=== PATIENT | male | born 1995 | race Caucasian/White ===

== ENCOUNTER 2019-06-06 13:50 | Emergency (ER) | payer MEDICAID, SELFPAY ==
[2019-06-06 13:58] VITALS: BP 149/86; PULSE 94; RESP 18; TEMP 36.9; O2SAT 97
--- NOTE | 2019-06-06 14:24 | DI.CT_ITS ---
SYMPTOMS/DIAGNOSIS: SHARP PERIUMBILICAL ABDOMINAL PAIN X 1 WEEK, FEELS LIKE PRIOR HERNIA REPAIRED IN DECEMBER 2017, PAIN RADIATING DISTALLY WHEN URINATING CT OF THE ABDOMEN AND PELVIS: Comparison is made with December,. The heart size is normal. The lung bases are clear. The liver, gallbladder, spleen, pancreas, kidneys and adrenals appear normal. The stomach is distended with food and fluid. The small bowel and colon are unremarkable. There is no bowel wall thickening or abnormal distention. The appendix appears normal. There is no free air or free fluid. The bladder and prostate are unremarkable. IMPRESSION: Negative CT of the abdomen and pelvis. No inguinal or abdominal wall hernia is seen.
--- NOTE | 2019-06-06 14:26 | ED.GENADUL_ITS ---
Discharge Plan Disposition Patient Disposition: HOME Discharge Details Chief Complaint: Abd Prob Clinical Impression: Abdominal pain Primary Care Provider: Angelo Gilliam ED Provider: Kyle Collazo Home Meds and New Rx's Prescriptions: Continued acetaminophen [Tylenol] 325 MG tablet 650 mg PO Q4H PRN PRNRF: 0 ibuprofen 200 MG capsule 600 mg PO Q6H PRN PRNQty: 1 RF: 0 Discharge Instructions Instructions: Abdominal Pain (ED) Additional Instructions: Rest over the next couple days. Maintain a clear liquid diet tonight. Advance her diet to bland soft foods tomorrow. If you tolerate soft foods tomorrow, you can advance diet further. Please contact your primary care physician to arrange follow-up. Please contact general surgery to arrange follow-up. Return to the ER for any worsening or new concerning symptoms. Referrals: Skyla Figueroa DO [OSTEOPATHIC DOCTOR] - Discharge Data Discharge Date/Time-TO BE ENTERED AT DEPARTURE: 06/06/19 17:31 Medical Decision Making 24-year-old male presents with chief complaint of abdominal pain. Patient is approximately 1.5 year status post umbilical hernia repair with mesh. Patient notes pain feels exactly the same as when he had hernia in the past. CT the abdomen pelvis was interpreted by radiology: FINDINGS: Mild gastric distention with a moderate amount of ingested material the exact etiology or significance this is uncertain. Appendix appears normal. Normal appearing solid organs. No intestinal obstruction. No obstructive uropathy. No free fluid. No free air. No inflammatory changes. IMPRESSION: No specific etiology identified for the patient's symptoms. Labs reviewed and nondiagnostic. Concern for likely intermittent hernia versus pain from scar tissue and adhesions. Patient was reassessed remained stable. All results were discussed with the patient. Patient was encouraged to follow- up with general surgery. I advised patient to return immediately for any worsening or new concerning symptoms. HPI General Mode of arrival: ambulatory . Date/Time Provider Initiated Documentation: 06/06/19 14:07 . Limitations to Documentation: no limitations . Information obtained by: patient . HPI Narrative: 24-year-old male presents with chief complaint of abdominal pain. Patient is approximately 1.5 year status post umbilical hernia repair with mesh. Pain feels exactly the same as when he had hernia in the past - pain is moderate, waxes and wanes over the past few days and more constant today. Pain was severe earlier today. No associated vomiting. No testicular pain or swelling. Related Data Home Medications Medication Instructions Recorded Confirmed acetaminophen [Tylenol] 650 mg PO Q4H PRN PRN tab 12/30/17 06/06/19 ibuprofen 600 mg PO Q6H PRN PRN #1 capsule 12/30/17 06/06/19 Previous Rx's Medication Instructions Recorded acetaminophen [Tylenol] 650 mg PO Q4H PRN PRN tab 12/30/17 ibuprofen 600 mg PO Q6H PRN PRN #1 capsule 12/30/17 Allergies Allergy/AdvReac Type Severity Reaction Status Date / Time shellfish derived Allergy Unverified 06/06/19 17:04 General Stated Complaint: Abd Prob JOHN: 2 Review of Systems Review of Systems All systems reviewed & are unremarkable except as noted in HPI and below Gastrointestinal Reports abdominal pain Genitourinary Denies scrotal swelling and Denies testicular mass PFSH Medical History (Updated 06/20/19 @ 08:38 by Kyle Collazo MD) Hernia (Chronic) Social History Smoking/Tobacco Use Status: Never Alcohol Intake: current Alcohol Intake frequency: a few times a month Alcohol type: beer Drug use: Never Substance use type: does not use Do you feel safe at home: Yes Do you feel safe in your relationship?: Yes Exam Const General: cooperative and no acute distress HENMT Mouth: moist mucous membranes Eyes Conjunctivae: normal conjunctivae Sclera: normal sclerae Neck Neck: trachea midline and supple Resp Auscultation: clear to auscultation bilaterally, no rales, no rhonchi and no wheezes Cardio Jugular venous pressure: no JVD Rate: regular rate and not tachycardic Rhythm: regular rhythm GI Palpation: soft, not firm, no guarding, no masses, not rigid and tender periumbilically Auscultation: normal bowel sounds Skin General skin exam: no rashes or lesions noted Neuro General: alert, awake and tone normal Extrem General: no edema Psych Appearance: grossly normal Mental Status: mental status grossly normal Course Vital Signs Temperature 36.9 C 06/06/19 13:58 Pulse 94 H 06/06/19 13:58 Respiratory Rate 18 06/06/19 13:58 Blood Pressure 149/86 H 06/06/19 13:58 Pulse Oximetry 97 06/06/19 13:58 Temperature 36.9 C 06/06/19 13:58 Temperature Source Temporal Artery Scan 06/06/19 13:58 Pulse 94 H 06/06/19 13:58 Respiratory Rate 18 06/06/19 13:58 Respiratory Effort Non-Labored 06/06/19 14:00 Blood Pressure 149/86 H 06/06/19 13:58 Pulse Oximetry 97 06/06/19 13:58 Oxygen Delivery Method Room Air 06/06/19 13:58 Oxygen Flow Rate 0 06/06/19 13:58 Pain Level 8 06/06/19 13:58
[2019-06-06 14:36] LABS: Lactate 0.9 mmol/L (0.6-1.4)
[2019-06-06 14:41] LABS: Abs Immature Grans 0.01 k/cumm (0.0-0.09); Absolute Basophil Count 0.03 k/cumm (0.0-0.2); Absolute Eosinophil Count 0.07 k/cumm (0.0-0.7); Absolute Lymphocyte Count 2.35 k/cumm (1.2-3.4); Absolute Monocyte Count 0.59 k/cumm (0.11-0.7); Absolute Neutrophil Count 3.86 k/cumm (1.2-6.7); Basophils % 0.4; HCT 44.6 % (40.0-50.0); HGB 16.1 g/dL (13.5-17.5); Immature Grans % 0.1; Mean Corp. HGB Concentration 36.1 g/dL (32.0-36.0); Mean Corpuscular Hemoglobin 31.2 pg (27.0-33.0); Mean Corpuscular Volume 86.4 fL (80-95); Mean Platelet Volume 9.3 fL (8.0-11.0); Monocytes % 8.5; Platelet Count 347 x1000/uL (130-400); RBC 5.16 m/cumm (4.50-6.00); White Blood Cell Count 6.91 k/cumm (4.4-10.8)
[2019-06-06 14:42] LABS: Bilirubin Negative (Negative); Blood Negative (Negative); Clarity Clear (Clear); Glucose Negative (Negative); Ketones Negative (Negative); Leukocyte Esterase Negative (Negative); Nitrite Negative (Negative); Specific Gravity 1.015 (1.005-1.025); Urobilinogen 0.2 EU/dL (Up TO 0.2); pH 7.5 (5-8)
[2019-06-06 14:57] LABS: ALT 67 U/L (16-63); AST 31 U/L (15-37); Albumin 4.4 g/dL (3.4-5.0); Alkaline Phosphatase 98 U/L (46-116); Anion Gap 8.6 mmol/L (3-11); BUN 14 mg/dL (7-18); Bilirubin, Total 0.5 mg/dL (0.2-1.0); CO2 29.4 mmol/L (21.0-32.0); CREATININE 1.24 mg/dL (0.70-1.30); Chloride 105 mmol/L (98-107); Glucose 80 mg/dL (70-100); Lipase 138 U/L (73-393); Potassium 3.5 mmol/L (3.5-5.1); Sodium 143 mmol/L (136-145); Total Protein 8.4 g/dL (6.4-8.2)
--- NOTE | 2019-06-06 16:14 | DI.VRAD_ITS ---
EXAM: CT Abdomen and Pelvis With Contrast EXAM DATE/TIME: 06/06/2019 2:26 PM CLINICAL HISTORY: 24 years old, male; Abdominal pain; Periumbilical; Prior surgery; Surgery date: 6+ months; Surgery type: Hernia repair December 2017. ; Patient HX: Sharp umbilical pain, radiating distally when urinating. Sharp pain since today lasts a couple hours. pain like last hernia last year. Has not hurt until 1 week ago. TECHNIQUE: Imaging protocol: Computed tomography of the abdomen and pelvis with intravenous contrast. Radiation optimization: All CT scans at this facility use at least one of these dose optimization techniques: automated exposure control; mA and/or kV adjustment per patient size (includes targeted exams where dose is matched to clinical indication); or iterative reconstruction. Contrast material: OMNIPAQUE 350; Contrast volume: 100 ml; Contrast route: IV; COMPARISON: CT ABD PELVIS WITH CONTRAST 12/06/2017 5:30 PM FINDINGS: Mild gastric distention with a moderate amount of ingested material the exact etiology or significance this is uncertain. Appendix appears normal. Normal appearing solid organs. No intestinal obstruction. No obstructive uropathy. No free fluid. No free air. No inflammatory changes. IMPRESSION: No specific etiology identified for the patient's symptoms. Dictated and Authenticated by: Andrzej Foley MD. Ordering:RAKESH Wright MD
[2019-06-06 17:07] VITALS: BP 119/78; PULSE 70; RESP 12; O2SAT 96
--- NOTE | 2019-06-06 18:54 | NUR.NOTE ---
Referral faxed to [facility]Nursing Note:
== END 2019-06-06 17:31 | disposition home or self-care (01) ==
PROVIDERS: Emergency Provider Student in an Organized Health Care Education/Training Program; PCP Physician Assistant
DX: R10.33 Periumbilical pain (principal); Z98.890 Other specified postprocedural states
CPT/HCPCS: 36415; 80053; 83690; 99284; 74177; 81003; 83605; 85025

== ENCOUNTER 2019-11-16 11:56 | Emergency (ER) | payer OTHER, MEDICAID, SELFPAY ==
[2019-11-16 12:00] VITALS: BP 162/96; PULSE 82; RESP 18; TEMP 36.6; O2SAT 94
[2019-11-16 12:50] LABS: Lactate 0.8 mmol/L (0.6-1.4)
[2019-11-16 12:52] LABS: Bilirubin Negative (Negative); Blood Negative (Negative); Clarity Clear (Clear); Glucose Negative (Negative); Ketones Negative (Negative); Leukocyte Esterase Negative (Negative); Nitrite Negative (Negative); Specific Gravity <= 1.005 (1.005-1.025); Urobilinogen 0.2 EU/dL (Up TO 0.2); pH 5.5 (5-8)
[2019-11-16 12:53] LABS: Absolute Basophil Count 0.03 k/cumm (0.0-0.2); Absolute Eosinophil Count 0.06 k/cumm (0.0-0.7); Absolute Lymphocyte Count 2.18 k/cumm (1.2-3.4); Absolute Monocyte Count 0.47 k/cumm (0.11-0.7); Absolute Neutrophil Count 3.57 k/cumm (1.2-6.7); Basophils % 0.5; HCT 47.1 % (40.0-50.0); HGB 16.8 g/dL (13.5-17.5); Lymphocytes % 34.5; Mean Corp. HGB Concentration 35.7 g/dL (32.0-36.0); Mean Corpuscular Hemoglobin 30.3 pg (27.0-33.0); Mean Corpuscular Volume 84.9 fL (80-95); Mean Platelet Volume 9.2 fL (8.0-11.0); Monocytes % 7.4; Neutrophils % 56.6; Platelet Count 378 x1000/uL (130-400); RBC 5.55 m/cumm (4.50-6.00); RBC Distribution Width 11.9 % (11.8-14.1); White Blood Cell Count 6.31 k/cumm (4.4-10.8)
--- NOTE | 2019-11-16 13:14 | ED.GENADUL_ITS ---
Discharge Plan Disposition Patient Disposition: HOME Discharge Details Chief Complaint: Abd Prob Clinical Impression: Abdominal pain Primary Care Provider: Angelo Gilliam ED Provider: Jonnie Guthrie Home Meds and New Rx's Prescriptions: No Action acetaminophen [Tylenol] 325 MG tablet 650 mg PO Q4H PRN PRNRF: 0 ibuprofen 200 MG capsule 600 mg PO Q6H PRN PRNQty: 1 RF: 0 Discharge Instructions Instructions: Abdominal Pain (ED) Additional Instructions: As we discussed, laboratory values are normal. CT imaging was offered but de clined at this time. Please watch for new or worsening symptoms and return to the ER for any concerns. As we discussed outpatient follow-up with surgery and/or urology may be indicated for your ongoing symptoms. Referrals: Martin Johnson MD [ [facility] ST[facility]FF [facility]YSICIAN] - Radha Vasquez MD [ [facility] STAFF PHYSICIAN] - Medical Decision Making 24-year-old gentleman who presents with abdominal pain for the past hour although chronic since his umbilical hernia surgery in December 2017. He does have reproducible discomfort however there is no guarding, rebound or rigidity. Abdomen is nonsurgical at this time. Certainly could be adhesions secondary to his surgery. He does report that typically his pain maxes out at a severe level and then over the next few hours slowly returns to baseline. He feels as though this is what is happening now. Patient is afebrile, no right lower quadrant discomfort, low suspicion for acute appendicitis. No urinary symptoms, low suspicion for UTI. No STD exposures. Patient openly admits that he is concerned about radiation as he has had abdominal scans as well as head CTs in the past. I did explain to him that I certainly do not feel a hernia upon my evaluation however cannot rule hernia out. Based upon his examination I have low suspicion for strangulation or incarceration of a hernia. We discussed her options, he is open to have blood work and a urinalysis completed however he would like to hold off on the CT at this time. He reports that the pain today is similar to what he experienced roughly 4 months ago after his last CT imaging. Given he appears well, nontoxic, normal CT 4 months ago, and his concern for radiation, I do believe not obtaining a CT reflexively at this time is reasonable. Laboratory values including lactic acid are unremarkable. Discussed these findings patient, family, significant other. Discussed the importance of outpatient follow-up including surgery and/or urology. He was encouraged to watch for new or worsening symptoms and return to the ER immediately for reevaluation. Patient comfortable this plan and has additional questions or concerns. Medical Records Medical records reviewed: Yes I reviewed the patient's medical records. Lab Data Lab results reviewed: Yes I reviewed the patient's lab results. Lab results narrative: Laboratory Tests Range/Units 11/16/19 11/16/19 11/16/19 12:44 12:44 12:44 WBC (4.4-10.8) k/cumm 6.31 RBC (4.50-6.00) m/cumm 5.55 Hgb (13.5-17.5) g/dL 16.8 Hct (40.0-50.0) % 47.1 MCV (80-95) fL 84.9 MCH (27.0-33.0) pg 30.3 MCHC (32.0-36.0) g/dL 35.7 RDW (11.8-14.1) % 11.9 Plt Count (130-400) x1000/uL 378 MPV (8.0-11.0) fL 9.2 Immature Gran % % 0.0 Neutrophils % 56.6 Lymphocytes % 34.5 Monocytes % 7.4 Eosinophils % 1.0 Basophils % 0.5 Absolute Neutrophils (1.2-6.7) k/cumm 3.57 Absolute Lymphocytes (1.2-3.4) k/cumm 2.18 Absolute Monocytes (0.11-0.7) k/cumm 0.47 Absolute Eosinophils (0.0-0.7) k/cumm 0.06 Absolute Basophils (0.0-0.2) k/cumm 0.03 Sodium (136-145) mmol/L 142 Potassium (3.5-5.1) mmol/L 3.8 Chloride (98-107) mmol/L 105 Carbon Dioxide (21.0-32.0) mmol/L 24.9 Anion Gap (3-11) mmol/L 12.1 H BUN (7-18) mg/dL 13 Creatinine (0.70-1.30) mg/dL 1.13 Estimated GFR/1.73 m2 (mL/min/1.73m2) >= 60.00 Glucose (74-106) mg/dL 111 H Lactate (0.6-1.4) mmol/L 0.8 Calcium (8.5-10.1) mg/dL 9.3 Total Bilirubin (0.2-1.0) mg/dL 0.5 AST (15-37) U/L 44 H ALT (16-63) U/L 114 H Alkaline Phosphatase (46-116) U/L 80 Total Protein (6.4-8.2) g/dL 8.5 H Albumin (3.4-5.0) g/dL 4.7 Urine Color (Yellow) Urine Clarity (Clear) Urine pH (5-8) Ur Specific [place] (1.005-1.025) Urine Protein (Negative) mg/dL Urine Ketones (Negative) mg/dL Urine Blood (Negative) Urine Nitrite (Negative) Urine Bilirubin (Negative) Urine Urobilinogen (Up TO 0.2) EU/dL Ur Leukocyte Esterase (Negative) Urine Glucose (Negative) mg/dL Range/Units 11/16/19 12:44 WBC (4.4-10.8) k/cumm RBC (4.50-6.00) m/cumm Hgb (13.5-17.5) g/dL Hct (40.0-50.0) % MCV (80-95) fL MCH (27.0-33.0) pg MCHC (32.0-36.0) g/dL RDW (11.8-14.1) % Plt Count (130-400) x1000/uL MPV (8.0-11.0) fL Immature Gran % % Neutrophils % Lymphocytes % Monocytes % Eosinophils % Basophils % Absolute Neutrophils (1.2-6.7) k/cumm Absolute Lymphocytes (1.2-3.4) k/cumm Absolute Monocytes (0.11-0.7) k/cumm Absolute Eosinophils (0.0-0.7) k/cumm Absolute Basophils (0.0-0.2) k/cumm Sodium (136-145) mmol/L Potassium (3.5-5.1) mmol/L Chloride (98-107) mmol/L Carbon Dioxide (21.0-32.0) mmol/L Anion Gap (3-11) mmol/L BUN (7-18) mg/dL Creatinine (0.70-1.30) mg/dL Estimated GFR/1.73 m2 (mL/min/1.73m2) Glucose (74-106) mg/dL Lactate (0.6-1.4) mmol/L Calcium (8.5-10.1) mg/dL Total Bilirubin (0.2-1.0) mg/dL AST (15-37) U/L ALT (16-63) U/L Alkaline Phosphatase (46-116) U/L Total Protein (6.4-8.2) g/dL Albumin (3.4-5.0) g/dL Urine Color (Yellow) Yellow Urine Clarity (Clear) Clear Urine pH (5-8) 5.5 Ur Specific [place] (1.005-1.025) <= 1.005 Urine Protein (Negative) mg/dL Negative Urine Ketones (Negative) mg/dL Negative Urine Blood (Negative) Negative Urine Nitrite (Negative) Negative Urine Bilirubin (Negative) Negative Urine Urobilinogen (Up TO 0.2) EU/dL 0.2 Ur Leukocyte Esterase (Negative) Negative Urine Glucose (Negative) mg/dL Negative HPI General Mode of arrival: ambulatory . Date/Time Provider Initiated Documentation: 11/16/19 12:08 . Limitations to Documentation: no limitations . Information obtained by: patient . HPI Narrative: 24-year-old male presents for lower abdominal-periumbilical pain that began roughly 1 hour ago while at work after making a sharp twisting movement. Patient reports that the pain has been constant and severe. He has a history of umbilical hernia repair in December 2017. He has had chronic pain ever since that time which does feel similar to what he is experiencing now. He reports that he had a CAT scan roughly 4 months ago for the same which was unremarkable. He denies any fever, nausea, vomiting, back pain, dysuria, hematuria, pain in his groin or testicles. He does report that historically over the past 2 years his pain is typically worse when he has a ful l bladder. He was told to follow-up with a surgical team as an outpatient but has yet to do so. Related Data Home Medications Medication Instructions Recorded Confirmed acetaminophen [Tylenol] 650 mg PO Q4H PRN PRN tab 12/30/17 06/06/19 ibuprofen 600 mg PO Q6H PRN PRN #1 capsule 12/30/17 06/06/19 Previous Rx's Medication Instructions Recorded acetaminophen [Tylenol] 650 mg PO Q4H PRN PRN tab 12/30/17 ibuprofen 600 mg PO Q6H PRN PRN #1 capsule 12/30/17 Allergies Allergy/AdvReac Type Severity Reaction Status Date / Time shellfish derived Allergy Unverified 06/06/19 17:04 General Stated Complaint: Abd Prob JOHN: 2 Review of Systems Constitutional Constitutional: Denies fever(s) and Denies headache(s) ENT Ears, Nose, Mouth, and Throat: Denies headache(s) Cardiovascular Cardiovascular: Denies chest pain and Denies palpitations Respiratory Respiratory: Denies cough Gastrointestinal Gastrointestinal: Reports abdominal pain, Denies constipation, Denies diarrhea, Denies nausea and Denies vomiting Genitourinary Genitourinary: Denies hematuria, Denies difficulty urinating, Denies genital lesions, Denies genital pain, Denies dysuria, Denies flank pain, Denies penile discharge, Denies scrotal swelling, Denies testicular mass, Denies testicular pain, Denies urinary frequency, Denies urinary hesitancy, Denies urinary urgency and Denies other (STD exposure) Musculoskeletal Musculoskeletal: Denies back pain, Denies numbness and Denies tingling Neurologic Neurologic: Denies headache(s), Denies numbness and Denies tingling Endocrine Endocrine: Denies palpitations Hematologic/Lymphatic Hematologic/Lymphatic: Denies lymphadenopathy [facility] Medical History Hernia (Chronic) Social History Smoking/Tobacco Use Status: Never Alcohol Intake: current Alcohol Intake frequency: a few times a month Alcohol type: beer Drug use: Never Substance use type: does not use Do you feel safe at home: Yes Do you feel safe in your relationship?: Yes Exam Const General: cooperative, healthy appearing, comfortable and no acute distress Orientation: alert HENMA Head: normal to inspection, normocephalic and atraumatic Mouth: moist mucous membranes Eyes Conjunctivae: conjunctivae normal Neck Neck: normal visual inspection, trachea midline and supple Resp Effort & Inspection: normal respiratory effort Auscultation: clear to auscultation bilaterally Cardio Rate: regular rate Rhythm: regular rhythm GI Inspection: normal to inspection and scar (Inferior periumbilical region, appears well-healed) Palpation: soft, not firm, no guarding, no hernias, no masses, no pulsatile masses, not rigid and tender (There is discomfort to the periumbilical and suprapubic region with moderat) Auscultation: normal bowel sounds Male General Exam: Yes normal external exam, No hernia (Examined both lying down and standing), No inguinal lymphadenopathy, No lesions and No tenderness Scrotum: scrotum normal Testes: normal Back/Spine/Pelvis Back: no CVA tenderness and No back tenderness Thoracic/Lumbar Spine: thoracic and lumbar spine normal to inspection, thoraco- lumbar ROM normal, No pain with thoraco-lumbar ROM and No paraspinal tenderness Skin General skin exam: no rashes or lesions noted Neuro General: alert and awake Motor: muscle tone normal throughout Sensory Exam: no sensory deficits noted and other (Cremasteric reflex equal bilaterally, 2+) Extrem General: normal to inspection Course Vital Signs Vital signs: Vital Signs Temperature 36.6 C 11/16/19 12:00 Pulse 82 11/16/19 12:00 Respiratory Rate 18 11/16/19 12:00 Blood Pressure 162/96 H 11/16/19 12:00 Pulse Oximetry 94 L 11/16/19 12:00 Temperature 36.6 C 11/16/19 12:00 Temperature Source Skin 11/16/19 12:00 Pulse 82 11/16/19 12:00 Respiratory Rate 18 11/16/19 12:00 Blood Pressure 162/96 H 11/16/19 12:00 Blood Pressure Position Sitting 11/16/19 12:00 Pulse Oximetry 94 L 11/16/19 12:00 Oxygen Delivery Method Room Air 11/16/19 12:00 Oxygen Flow Rate 0 11/16/19 12:00 Pain Level 10 11/16/19 12:00 Lab/Test Results Lab/Test Results: Laboratory Tests Range/Units 11/16/19 11/16/19 11/16/19 12:44 12:44 12:44 WBC (4.4-10.8) k/cumm 6.31 RBC (4.50-6.00) m/cumm 5.55 Hgb (13.5-17.5) g/dL 16.8 Hct (40.0-50.0) % 47.1 MCV (80-95) fL 84.9 MCH (27.0-33.0) pg 30.3 MCHC (32.0-36.0) g/dL 35.7 RDW (11.8-14.1) % 11.9 Plt Count (130-400) x1000/uL 378 MPV (8.0-11.0) fL 9.2 Immature Gran % % 0.0 Neutrophils % 56.6 Lymphocytes % 34.5 Monocytes % 7.4 Eosinophils % 1.0 Basophils % 0.5 Absolute Neutrophils (1.2-6.7) k/cumm 3.57 Absolute Lymphocytes (1.2-3.4) k/cumm 2.18 Absolute Monocytes (0.11-0.7) k/cumm 0.47 Absolute Eosinophils (0.0-0.7) k/cumm 0.06 Absolute Basophils (0.0-0.2) k/cumm 0.03 Lactate (0.6-1.4) mmol/L 0.8 Urine Color (Yellow) Yellow Urine Clarity (Clear) Clear Urine pH (5-8) 5.5 Ur Specific [place] (1.005-1.025) <= 1.005 Urine Protein (Negative) mg/dL Negative Urine Ketones (Negative) mg/dL Negative Urine Blood (Negative) Negative Urine Nitrite (Negative) Negative Urine Bilirubin (Negative) Negative Urine Urobilinogen (Up TO 0.2) EU/dL 0.2 Ur Leukocyte Esterase (Negative) Negative Urine Glucose (Negative) mg/dL Negative
[2019-11-16 13:24] LABS: ALT 114 U/L (16-63); AST 44 U/L (15-37); Albumin 4.7 g/dL (3.4-5.0); Alkaline Phosphatase 80 U/L (46-116); Anion Gap 12.1 mmol/L (3-11); BUN 13 mg/dL (7-18); Bilirubin, Total 0.5 mg/dL (0.2-1.0); CO2 24.9 mmol/L (21.0-32.0); CREATININE 1.13 mg/dL (0.70-1.30); Calcium 9.3 mg/dL (8.5-10.1); Chloride 105 mmol/L (98-107); Glucose 111 mg/dL (74-106); Potassium 3.8 mmol/L (3.5-5.1); Sodium 142 mmol/L (136-145); Total Protein 8.5 g/dL (6.4-8.2)
[2019-11-16 13:27] VITALS: BP 128/82; PULSE 74; RESP 14; TEMP 37; O2SAT 97
== END 2019-11-16 13:26 | disposition home or self-care (01) ==
PROVIDERS: Emergency Provider Physician Assistant; PCP Physician Assistant
DX: R10.33 Periumbilical pain (principal)
CPT/HCPCS: 36415; 80053; 99283; 81003; 83605; 85025

== ENCOUNTER 2020-05-26 03:56 | Outpatient (CLI) | payer OTHER, SELFPAY ==
--- NOTE | 2020-05-26 10:58 | DI.CT_ITS ---
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 TECHNIQUE: Imaging Protocol: Axial computed tomography images with coronal and sagittal reformatted images were created and reviewed CONTRAST MATERIAL: Intravenous: Omnipaque 350 Contrast volume:100 Oral: yes COMPARISON: CT ABD PELVIS WITH CONTRAST from 12/06/2017 FINDINGS: ABDOMEN: Lung Bases: Normal where visualized. Liver: Normal density. No measurable mass. Gallbladder and biliary tract: No radiodense calculus or dilation. Pancreas: Normal density, no abnormal calcifications or inflammatory process. Spleen: Normal. Kidneys: Normal size, contour and axis. No radiodense stones or obstructive uropathy. No masses seen. Adrenal glands: No masses seen. Abdominal Aorta: Abdominal portion non-dilated. Soft tissues: No evidence of umbilical hernia or other abdominal wall hernia. No inguinal hernia. PELVIS: Bladder: Symmetric distention, no gross wall thickening. A urachal remnant is again noted. Bowel: No obstruction or bowel wall thickening. Peritoneal cavity: No ascites, collection or mesenteric inflammatory response. Bones: Within normal limits. Reproductive organs: Within normal limits. Lymph nodes: Unremarkable. Impression: Urachal remnant, otherwise unremarkable CT scan of the abdomen and pelvis. RADIATION DOSE DELIVERED: 620.78mGy.cm Total DLP DATA REPOSITORY: All CT scans at this facility are submitted to the National Radiology Data Registry (NRDR) Dose Index Registry (DIR) with the [employer] (ACR). RADIATION OPTIMIZATION: All CT scans at this facility use at least one of these dose optimization te chniques: automated exposure control; mA and/or kV adjustment per patient size (includes targeted exa ms where dose is matched to clinical indication); or iterative reconstruction.
[2020-05-26] MEDS: Normal Saline - Diluent 50 ML VIAL IV (11:01)
[2020-05-26] MEDS: Omnipaque 350 MG/ML 100 ML BTL IJ (11:02)
== END 2020-05-26 04:16 ==
PROVIDERS: PCP Physician Assistant
DX: Q64.4 Malformation of urachus (principal)
CPT/HCPCS: 74177; J3490

== ENCOUNTER 2020-06-09 09:18 | Outpatient (CLI) | payer OTHER, SELFPAY ==
[2020-06-11 17:39] LABS: COVID-19 RT-PCR Result NEGATIVE (Negative)
== END 2020-06-09 09:38 ==
PROVIDERS: PCP Physician Assistant; Visit Provider Urology
DX: Z11.59 Encounter for screening for other viral diseases (principal); Z01.818 Encounter for other preprocedural examination
CPT/HCPCS: U0003

== ENCOUNTER 2020-06-23 14:31 | Emergency (ER) | payer OTHER, SELFPAY ==
[2020-06-23 14:37] VITALS: BP 141/95; PULSE 98; RESP 16; TEMP 36.9; O2SAT 100
[2020-06-23 15:01] VITALS: RESP 18
--- NOTE | 2020-06-23 15:01 | ED.GENADUL_ITS ---
Discharge Plan Discharge Details Chief Complaint: GenMedical Primary Care Provider: Angelo Gilliam ED Provider: Francisco Olguin Home Meds and New Rx's Prescriptions: No Action acetaminophen [Tylenol] 325 MG tablet 650 mg PO Q4H PRN PRNRF: 0 ibuprofen 200 MG capsule 600 mg PO Q6H PRN PRNQty: 1 RF: 0 Medical Decision Making 25-year-old male who is postop day #4 status post laparoscopic surgery for urachal remnant. The procedure was performed at [facility]. He was discharged that night and has been eating and drinking without difficulty. No fever or vomiting. Yesterday he noted federica-incisional itching and redness that began at all 4 laparoscopic sites. He has had no other complaint. On exam he does have hyperemia surrounding the laparoscopic sites but there is no significant tenderness. I do feel this is a mild, localized allergic reaction likely to the tissue adhesive. Discussed with him that I would favor holding off on steroids to allow for good wound healing and will place him on Benadryl cream. He understands if he develops a fever, increasing pain or bloating, or discharge from the wound that he should seek reevaluation. He will otherwise follow-up with his urology appointment. HPI General Mode of arrival: ambulatory . Date/Time Provider Initiated Documentation: 06/23/20 14:32 . Limitations to Documentation: no limitations . Information obtained by: patient . History of Present Illness 25 year old M presents to the emergency department with the chief complaint of Federica-incisional itching and redness, described as mild, Quality is described as dull and constant, and is localized to the abdomen. Patient reports no radiation. Patient started experiencing this hour(s) and it has been constant. No relieving factors improve symptom(s), No exacerbating factors reported . Patient notes denies fever/chills and loss of appetite. Patient did receive the following treatments prior to arrival, none Related Data Home Medications Medication Instructions Recorded Confirmed acetaminophen [Tylenol] 650 mg PO Q4H PRN PRN tab 12/30/17 11/22/19 ibuprofen 600 mg PO Q6H PRN PRN #1 cap 12/30/17 11/22/19 Previous Rx's Medication Instructions Recorded acetaminophen [Tylenol] 650 mg PO Q4H PRN PRN tab 12/30/17 ibuprofen 600 mg PO Q6H PRN PRN #1 cap 12/30/17 Allergies Allergy/AdvReac Type Severity Reaction Status Date / Time shellfish derived Allergy Unverified 06/23/20 15:04 General Stated Complaint: GenMedical JOHN: 3 Review of Systems Narrative: No fever, no increased pain, eating and drinking normally. 4 systems reviewed and otherwise negative [facility] Medical History Hernia Urachal remnant Surgical History History of umbilical hernia repair Social History Smoking/Tobacco Use Status: Never Alcohol Intake: current Alcohol Intake frequency: a few times a month Alcohol type: beer Drug use: Never Substance use type: does not use Do you feel safe at home: Yes Do you feel safe in your relationship?: Yes Exam Narrative Exam Narrative: GEN: awake, alert, oriented 3. Pleasant, well groomed, interactive. HEAD: Normocephalic, atraumatic EYES: PERRL, EOMI NECK: Full ROM, no ALRISA, no menigismus CHEST/RESP: No respiratory distress ABDOMEN: Soft, minimally tender, no mass. +Bowel sounds. 4 surgical incisions/laparoscopy sites healing with surrounding trace erythema that blanches to the touch. No fluctuance. EXT: Full ROM, no edema, no rash Neuro: Grossly normal neurologic exam, conversant, interactive. Psych: Speech fluent, thoughts congruent, affect normal Course Vital Signs Vital signs: Vital Signs Temperature 36.9 C 06/23/20 14:37 Pulse 98 H 06/23/20 14:37 Respiratory Rate 16 06/23/20 14:37 Blood Pressure 141/95 H 06/23/20 14:37 Pulse Oximetry 100 06/23/20 14:37 Temperature 36.9 C 06/23/20 14:37 Temperature Source Oral 06/23/20 14:37 Pulse 98 H 06/23/20 14:37 Respiratory Rate 16 06/23/20 14:37 Blood Pressure 141/95 H 06/23/20 14:37 Pulse Oximetry 100 06/23/20 14:37 Oxygen Delivery Method Room Air 06/23/20 14:37 Oxygen Flow Rate 0 06/23/20 14:37 Pain Level 0 06/23/20 14:37
[2020-06-23 15:07] VITALS: BP 141/95; PULSE 98; RESP 18; TEMP 36.9; O2SAT 100
[2020-06-23] MEDS: diphenhydrAMINE /ZINC ACET CR 30 GM TUBE TP (15:09)
== END 2020-06-23 15:30 | disposition home or self-care (01) ==
LOC: ER 15:15
PROVIDERS: Emergency Provider Emergency Medicine; PCP Physician Assistant
DX: L23.1 Allergic contact dermatitis due to adhesives (principal); L29.8 Other pruritus; L53.9 Erythematous condition, unspecified
CPT/HCPCS: 99283

== ENCOUNTER 2022-05-20 18:33 | Emergency (ER) | payer OTHER, SELFPAY ==
[2022-05-20 18:38] VITALS: BP 155/96; PULSE 92; RESP 18; TEMP 36.8; O2SAT 100
[2022-05-20] MEDS: Cyclobenzaprine 10 MG TAB PO (19:25)
--- NOTE | 2022-05-20 20:03 | W.ED.GENAD ---
Discharge Plan Disposition Patient Disposition: HOME Condition: Improving Discharge Details Clinical Impression: Strain of flexor muscle of left hip Primary Care Provider: Angelo Gilliam ED Provider: [place] Home Meds and New Rx's Prescriptions: New cyclobenzaprine 10 mg tablet 10 mg PO TID PRN (Reason: muscle spasm) Qty: 15 0RF diclofenac potassium 50 mg tablet 50 mg PO TID PRN (Reason: pain) Qty: 14 0RF Continued acetaminophen [Tylenol] 325 MG tablet 650 mg PO Q4H PRN PRN0RF Held ibuprofen 200 MG capsule 600 mg PO Q6H PRN PRNQty: 1 0RF Hold Instructions: Resume on 05/26/22. Do not take ibuprofen while on prescribed NSAIDs Discharge Instructions Instructions: Muscle Strain (ED) Additional Instructions: You may slowly advance activity as tolerated but it is recommended to take it easy at least for the next 3 days. If you develop any new or worsening symptoms feel free to return to the emergency department for reassessment or follow-up with your primary care provider Stand Alone Forms: Work Release Discharge Data Discharge Date/Time-TO BE ENTERED AT DEPARTURE: 05/20/22 22:40 Medical Decision Making Patient presenting to the emergency department for chief complaint of left hip/groin pain. He states he was slightly bent over to put on his shoe and when he lifted his leg he started feeling significant pain and discomfort. Patient denies any other injury or trauma or other systemic symptoms. Physical exam shows significant tenderness to palpation of the left hip flexor and proximal thigh that is exacerbated by movement. Exam is otherwise unremarkable no CVA tenderness, no spinal tenderness, no abdominal tenderness or findings. Suspect musculoskeletal injury. At this time I do not feel that radiological imaging is warranted so we will treat patient's discomfort. He did take Tylenol and ibuprofen approximately 1 hour prior to arrival. Patient given Flexeril but is refusing any further pain medication so we will plan on reassessment after muscle relaxant. Patient reassessed and shows significant marked improvement with both ambulation and pain level. Will prescribe and sent home patient with further NSAIDs and Flexeril along with scripts for further medication as needed. Close monitoring of symptoms along with return and follow-up precautions were discussed. After discussion of diagnosis and plan of care patient has no further needs, questions, or concerns and states clear understanding to return to the emergency department for any worsening symptoms. This documentation was generated using [employer] dictation system, please disregard any oddities of phrase or misspellings. HPI General Mode of arrival: ambulatory. Date/Time Provider Initiated Documentation: 05/20/22 18:51. Limitations to Documentation: no limitations. Information obtained by: patient, family and RN notes reviewed. History of Present Illness 27 year old M presents to the emergency department with the chief complaint of left groin pain , described as moderate and severe, with intensity rated at 9. Quality is described as sharp, and is localized to the left and lower extremity. Patient reports no radiation. Patient started experiencing this hour(s) (1) and it has been constant. No relieving factors improve symptom(s), Movement worsens symptoms . Patient notes no other symptoms.. Patient did receive the following treatments prior to arrival, NSAID Related Data Home Medications Medication Instructions Recorded Confirmed acetaminophen 325 mg tablet 650 mg PO Q4H PRN PRN 12/30/17 06/23/20 (Tylenol) ibuprofen 200 mg capsule 600 mg PO Q6H PRN PRN #1 cap 12/30/17 06/23/20 cyclobenzaprine 10 mg tablet 10 mg PO TID PRN muscle spasm #15 05/20/22 tabs diclofenac potassium 50 mg tablet 50 mg PO TID PRN pain #14 tabs 05/20/22 Previous Rx's Medication Instructions Recorded acetaminophen 325 mg tablet 650 mg PO Q4H PRN PRN 12/30/17 (Tylenol) ibuprofen 200 mg capsule 600 mg PO Q6H PRN PRN #1 cap 12/30/17 cyclobenzaprine 10 mg tablet 10 mg PO TID PRN muscle spasm #15 05/20/22 tabs diclofenac potassium 50 mg tablet 50 mg PO TID PRN pain #14 tabs 05/20/22 Allergies Allergy/AdvReac Type Severity Reaction Status Date / Time shellfish derived Allergy Unverified 06/23/20 15:04 General Stated Complaint: Abd Prob JOHN: 3 Review of Systems Constitutional Constitutional: Denies chills, Denies fever(s) and Denies poor appetite Cardiovascular Cardiovascular: Denies chest pain and Denies dyspnea Respiratory Respiratory: Denies cough and Denies dyspnea Gastrointestinal Gastrointestinal: Reports as per HPI, Reports abdominal pain (left lower), Denies melena, Denies change in bowel habits, Denies constipation, Denies diarrhea, Denies nausea and Denies vomiting Genitourinary Genitourinary: Denies hematuria, Denies difficulty urinating, Denies genital pain, Denies flank pain, Denies scrotal swelling, Denies testicular pain, Denies urinary hesitancy, Denies urinary incontinence and Denies urinary urgency Musculoskeletal Musculoskeletal: Reports as per HPI, Reports abnormal gait, Reports muscle cramps and Reports stiffness Integumentary/Breasts Skin/Breast: Denies rash Neurologic Neurologic: Reports abnormal gait and Denies paresthesias PFSH All Active Problems Strain of flexor muscle of left hip (Acute) Hernia (Chronic) Urachal remnant (Acute) Abdominal pain (Acute) Surgical History History of umbilical hernia repair Social History Smoking/Tobacco Use Status: Never Smoking risk assessment performed?: Yes Alcohol Intake: current Alcohol Intake frequency: a few times a month Alcohol type: beer Drug use: Never Substance use type: does not use Do you feel safe at home: Yes Do you feel safe in your relationship?: Yes Exam Const General: cooperative Orientation: alert, awake and oriented x3 Resp Effort & Inspection: normal respiratory effort and able to speak in complete sentences Auscultation: clear to auscultation bilaterally Cardio Rate: regular rate Rhythm: regular rhythm Heart Sounds: S1 normal and S2 normal GI Palpation: soft, no hepatosplenomegaly, not firm, no guarding, no masses, no pulsatile masses, not rigid, no splenomegaly and nontender Auscultation: normal bowel sounds Male General Exam: Yes normal external exam and No inguinal lymphadenopathy Penis: normal penis and no swelling Meatus: meatus normal Scrotum: scrotum normal, not edematous, no masses and no scrotal swelling Testes: normal, testicular lie normal, no testicular mass, no testicular swelling, no testicular tenderness and normal testicular lie Back/Spine/Pelvis Back: no CVA tenderness Neuro General: patient alert, patient awake, patient oriented x3, gait normal and moves all extremities Extrem General: normal exam except as noted Left lower extremity: hip/thigh Details: tenderness Location: of the hip (hip flexor) and abnormal ROM Details: pain with active ROM Course Vital Signs Vital signs: Vital Signs Temperature 36.8 C 05/20/22 18:38 Pulse 92 H 05/20/22 18:38 Respiratory Rate 18 05/20/22 18:38 Blood Pressure 155/96 H 05/20/22 18:38 Pulse Oximetry 100 05/20/22 18:38 Temperature 36.8 C 05/20/22 18:38 Temperature Source Temporal Artery Scan 05/20/22 18:38 Pulse 92 H 05/20/22 18:38 Respiratory Rate 18 05/20/22 18:38 Respiratory Effort 05/20/22 19:30 Blood Pressure 155/96 H 05/20/22 18:38 Blood Pressure Position Sitting 05/20/22 18:38 Pulse Oximetry 100 05/20/22 18:38 Oxygen Delivery Method Room Air 05/20/22 18:38 Oxygen Flow Rate 0 05/20/22 18:38
[2022-05-20] MEDS: Cyclobenzaprine 10 MG TAB, 3 TABS/BTL PO (20:32)
[2022-05-20] MEDS: Ibuprofen 600 MG TAB, 6 TABS/BTL PO (20:33)
[2022-05-20 20:34] VITALS: BP 130/86; PULSE 74; RESP 18; TEMP 36.6; O2SAT 97
== END 2022-05-20 22:40 | disposition home or self-care (01) ==
PROVIDERS: Emergency Provider Nurse Practitioner Family; PCP Physician Assistant
DX: S76.012A Strain of muscle, fascia and tendon of left hip, initial encounter (principal); X50.9XXA Other and unspecified overexertion or strenuous movements or postures, initial encounter
CPT/HCPCS: 99283; 99284